=== PATIENT | male | born 1970 ===

== ENCOUNTER 2016-07-20 10:10 | Day surgery (SDC) | payer OTHER ==
[2016-07-13 09:21] VITALS: BMI 28.1
[2016-07-20] MEDS ORDERED: Clindamycin 300 mg/2 ml Inj ONE (14:03)
[2016-07-20] MEDS ORDERED: Midazolam 2 MG/2 ML VIAL ONE (14:14)
[2016-07-20] MEDS ORDERED: Propofol 10 mg/ml Inj (20 ML) ONE (14:14)
[2016-07-20] MEDS ORDERED: Lactated Ringer's 1,000 ML IV ONE (14:15)
[2016-07-20] MEDS ORDERED: Rocuronium 10 mg/ml (5 ml) ONE ×2 (14:17→15:01)
[2016-07-20] MEDS ORDERED: Neostigmine Methylsulfate 3mg/3ml Syringe IV ONE (15:49)
[2016-07-20] MEDS ORDERED: HYDROmorphone 0.5 mg/0.5 ml ISec IM STA (16:29)
[2016-07-20] MEDS ORDERED: HYDROmorphone 0.5 mg/0.5 ml ISec ONE (16:29)
--- NOTE | 2016-07-20 16:35 | PCM.SURG1 ---
Surgeon's Initial Post Op Note - Surgeon's Notes Surgeon: Giorgio Medel MD Sectional Belt Mold Assembler: Sanna Espinoza PA-C Type of Anesthesia: General Endo Anesthesia Administered By: Dr. Acuña Pre-Operative Diagnosis: Left distal biceps tendon tear Operative Findings: tourniquet: 49 min @ 250mmHg Post-Operative Diagnosis: same Operation Performed: Left distal biceps tendon primary repair Specimen/Specimens Removed: none Estimated Blood Loss: EBL {In ML}: 10 Blood Products Given: N/A Drains Used: No Drains Post-Op Condition: Fair Date of Surgery/Procedure: 07/20/16 Time of Surgery/Procedure: 16:34
[2016-07-20] MEDS: HYDROmorphone 1 mg/ml ISec IVP PRN ×2 (16:40→17:16)
[2016-07-20] MEDS ORDERED: Oxycodone/Acetaminophen 5/325 mg Tab PO PRN (17:01)
[2016-07-20 18:26] VITALS: BP 118/73; PULSE 83; RESP 18; TEMP 97; O2SAT 100
--- NOTE | 2016-07-20 20:28 | OP ---
PROCEDURE DATE: 07/20/2016 PREOPERATIVE DIAGNOSIS: Left elbow complete distal biceps tear. POSTOPERATIVE DIAGNOSIS: Left elbow complete distal biceps tear. PROCEDURE: Left elbow: 1. Primary repair of distal biceps tendon. 2. Placement in long-arm splint. SURGEON: Juan Medel MD PATIENT RESOURCE COORDINATOR: Mariam Espinoza PA-C JUSTIFICATION FOR PATIENT RESOURCE COORDINATOR: Mariam Espinoza is a certified physician assistant chief nursing officer and her skilled surgical services were an absolute necessity for successful completion of the procedure. She provided skilled surgical assistance with positioning of patient, positioning of extremity, retraction of neurovascular structures, preparation of proximal radius, preparation of distal biceps tendon , management of surgical field, docking of distal biceps tendon and placement of fixation hardware, wound closure, placement in long-arm splint. Mariam Espinoza was present for the entire case and was an absolute necessity for successful completion of the procedure. ANESTHESIA: General endotracheal anesthesia with a postoperative regional nerve block placed by anesthesia staff in PACU. ESTIMATED BLOOD LOSS: 10 mL. TOURNIQUET TIME: 49 minutes at 250 mmHg. COMPLICATIONS: None. SPECIMENS: None. DISPOSITION: The patient was extubated and transferred back in stable condition and tolerated procedure well. IMPLANTS: Arthrex tension slide distal biceps tendon repair kit with stainless steel button, FiberLoop suture, 7 mm BioComposite biceps tenodesis screw, all placed at the distal biceps tendon and proximal radius tuberosity. INDICATIONS FOR SURGERY: The patient is a 45-year-old male with no significant past medical history aside from a history of smoking who presented to the office at [facility] under my care for the first time on 06/30/2016 with left elbow pain and weakness since 06/23/2016. This is a Workman's Compensation case for [facility] Workers' Compensation with a date of injury of 06/23/2016. 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 He went to an Urgent Care in [facility] on the day of injury and was evaluated and diagnosed with an elbow sprain, possible biceps tendon tear and instructed to follow up with an orthopedic surgeon as an outpatient. He followed up in my office. On physical exam, indeed he had a positive hook sign with a positive iron sign and a nonpalpable biceps tendon, aka clinical findings of a distal biceps tendon tear. He was referred for an MRI of the left elbow, which was done at [facility] on 07/04/2016 which confirmed a distal biceps tendon tear with 1 cm retraction as well as common extensor tendinopathy and inflammation. I spent a very long time with the patient explaining to him his diagnosis and treatment options which included primary distal biceps tendon repair versus non- operative treatment. He understood that non-operative treatment may lead to weakness with supination and partial weakness with elbow flexion. With his occupation as a construction code administrator, he stated that this was not an option for him. He was very adamant about returning to the same occupation. He was indicated for left elbow primary distal biceps tendon repair. The risks, benefits, and alternatives of the procedure were discussed at length with the patient with the risks including but not limited to, neurovascular damage, infection, damage to posterior and interosseous nerve and palsy, failure of hardware, failure of repair, need for further surgery, chronic pain and disability, development of blood clots including DVT and PE, need for further surgery, anesthesia reactions including . After answering all of his questions, patient stated he understood the risks and wished to proceed with surgery. He watched the surgical animation videos and diagnosis animation videos and stated that he understood his diagnosis as well as the procedure to be done. He was referred to his primary care physician for medical clearance and the procedure was scheduled after his PATs were done and he was medically cleared. I spent a long time explaining the need for compliance with the post-op rehab protocol in order to maximize the chances of him having a successful outcome after surgery. PROCEDURE IN DETAIL: The patient was identified in the preoperative holding area and the left elbow was marked for surgery. Once again, as described above , the risks, benefits, alternatives of the procedure were discussed at length with the patient and informed consent was obtained. After brief discussion with anesthesia staff, perioperative IV antibiotics in the form of 900 mg clindamycin IV were administered as the patient has a PENICILLIN ALLERGY and the patient was then transported to the OR and placed on the well-padded operating room table with all bony prominences and superficial neurovascular structures well padded. A final timeout was done with the surgeon, anesthesia staff, and OR staff, all in agreement with the patient, procedure being done, and extremity being operated on. General anesthesia was administered without difficulty or complication. Left upper extremity was then prepped and draped in standard sterile fashion with a sterile tourniquet prepared. The limb was then exsanguinated and a sterile tourniquet was inflated for a total tourniquet time of 49 minutes at 250 mmHg. An incision was made 3 fingerbreadths distal to the crease of the cubital fossa/elbow crease with a slight radial slant to allow for easy access to the distal biceps tendon and the radial tuberosity. Incision was made through skin down to subcutaneous tissue down to level of the forearm fascia. The lateral antebrachial cutaneous nerve was also identified and protected throughout the course with blunt retraction. Brachioradialis muscle belly was identified and a plane was developed between the pronator teres and the brachioradialis. The distal biceps torn tendon was easily identified as it was indeed torn with a surrounding seroma. The seroma was decompressed and the fluid was evacuated. Distal biceps tendon had some scarred in fibrous tissue adherent to the surrounding soft tissue which were resected and the distal biceps tendon was then brought into the surgical wound carefully while maintaining protection to all neurovascular structures. The distal biceps tendon distal tip showed scarred in tissue that was of poor quality, which was resected back to healthy tendon tissue. With the use of the #2 FiberWire FiberLoop suture from Arthrex, a whipstitch was placed starting at 3 cm proximal to the distal tip and working distally until it exited the distal tip. With a sharp blade, the end of the tendon was bulleted for easier docking into the future recipient site at the radial tuberosity. Once the preparation of distal biceps tendon was complete, the distal biceps tendon was then placed back into the soft tissue antecubital fossa and attention was then turned towards exposing radial tuberosity. With blunt Hohmann's and retractors, the radial tuberosity was identified and exposed while maintaining careful gentle retraction to the brachioradialis and posterior interosseous nerve behind it and holding the arm in full supination. With the help of fluoroscopic imaging, the center of the radial tuberosity was palpated, seen and also confirmed on biplanar fluoroscopic imaging and a spade-tipped guidewire was then passed from the distal biceps tendon kit from Arthrex bicortically centered on the radial tuberosity. The distal biceps tendon while prepared measured 7 mm and an 8 mm cannulated drill was then passed over the guidewire unicortically, just drilling out the near cortex. At that point in time, the guidewire and the drill were removed and copious irrigation was used to remove all bony debris and prevent any future heterotopic ossification. The docking site was inspected and visualized and found to be well done with a perfect outer ring and inner ring at the far cortex. The suture from the distal biceps tendon was then passed in opposing directions through the tension slide button and with the handle, the tension slide button was passed through the far hole in the radial tuberosity and flipped directly under direct visualization on the far cortex with no interposed soft tissue, confirmed with a biplanar fluoroscopic imaging. The suture was then advanced alternating tension slide technique with the elbow held at flexion and supination and under direct visualization, the distal biceps tendon docked completely into the radial tuberosity docking site. A free needle was then used to place one end of the sutures through the distal biceps tendon to hold the position. The suture was then tied to each other and the distal biceps repair and docking site was maintained. At that point in time, backup fixation with an 8 mm BioComposite biceps tenodesis screw was then carried out. One end of the suture was passed through the screw from Arthrex and the screw was placed with good press-fit and fixation achieved. One end of the suture that was passed through the screw was then, with a free needle, tied through the distal biceps tendon again to secure the construct. The elbow was then taken through range of motion and was able to obtain near full extension while maintaining good tension on the biceps tendon with full supination and pronation obtained. Final fluoroscopic images were taken confirming good placement of the docking site and the tension button. The tourniquet was deflated for a total tourniquet time of 49 minutes and good hemostasis was achieved. All neurovascular structures were evaluated and found to be without injury. The posterior interosseous nerve was not visualized throughout the surgery and was protected with blunt retraction and supinated position of the arm. The wound was copiously irrigated and wound closure was started with 2.0 Vicryl suture for deep tissue and subcutaneous tissue followed by 3.0 Monocryl suture for skin. Sterile dressings were applied followed by a layer of sterile cast padding from the metacarpal heads all the way up to the proximal arm followed by placement in a posterior splint. A layer of compressive Parveen wrap was placed and a U splint was placed. Once the splint hardened, the patient was extubated and transferred to PACU in stable condition and tolerated the procedure well, in a sling. DISPOSITION: The patient will be discharged home once he has recovered from anesthesia. He has been given a prescription for Percocet for pain control. He will contact me directly with any questions or concerns. He is instructed to keep the splint and the dressings clean, dry, and intact until he follows up in the office at [facility] within 1 week and already has his postoperative appointment set up. He is to be strict non weight bearing to the Left upper extremity. Juan Medel MD cc: [id number] TT: 07/20/2016 20:27:42 M[place]ifton
== END 2016-07-20 18:45 | disposition home or self-care (01) ==
LOC: C.SDS 10:10
PROVIDERS: ATTEND Student in an Organized Health Care Education/Training Program
DX: S46.212A Strain of muscle, fascia and tendon of other parts of biceps, left arm, initial encounter (principal); X50.0XXA Overexertion from strenuous movement or load, initial encounter; Z88.0 Allergy status to penicillin
CPT/HCPCS: 24341; J1170; J2250; J2704; J2710; J3010; J7120

== ENCOUNTER 2016-10-12 18:11 | Emergency (ER) | payer OTHER ==
[2016-10-12 18:11] VITALS: BMI 28.1
[2016-10-12] MEDS ORDERED: Oxycodone/Acetaminophen 5/325 mg Tab PO STA (19:41)
--- NOTE | 2016-10-12 19:41 | C.PDOC ---
History Of Present Illness 45 yo female w/PMHx of sciatica, come in for evaluation of painful mass over rectal area noted few days ago. Pt reports, developed severe pain 1.5 days ago. Admits, (+) hx of constipation. Pt also reports, " pain in my rectum trigger my sciatica pain". Otherwise, pt denies fever, chills, abd. pain, N/V/D, denies change in BM, melena, hematoschezia, denies UTI sx, saddle anesthesia, urinary or fecal incontinence, denies weakness, sensory or vascular deficits to B/L LEs. Ambulate to ED for evaluation, not in any apparent distress. Time Seen by Provider: 10/12/16 19:22 Chief Complaint (Nursing): Abnormal Skin Integrity History Per: Patient Onset/Duration Of Symptoms: Gradual Current Symptoms Are (Timing): Still Present Past Medical History Reviewed: Historical Data, Nursing Documentation, Vital Signs Vital Signs: Last Vital Signs Temp 98.1 F 10/12/16 18:20 Pulse 77 10/12/16 18:20 Resp 18 10/12/16 18:20 BP 135/80 10/12/16 18:20 Pulse Ox 98 10/12/16 19:46 - Medical History PMH: Back Problems Denies: Chronic Kidney Disease Other Surgeries: "Back surgery" Family History: States: Unknown Family Hx - Social History Hx Alcohol Use: No Hx Substance Use: No - Immunization History Hx Tetanus Toxoid Vaccination: No Hx Influenza Vaccination: No Hx Pneumococcal Vaccination: No Review Of Systems Except As Marked, All Systems Reviewed And Found Negative. Constitutional: Negative for: Fever, Chills ENT: Negative for: Throat Pain Gastrointestinal: Positive for: Rectal Pain. Negative for: Nausea, Vomiting, Abdominal Pain, Diarrhea, Melena, Hematochezia, Hematemesis Genitourinary: Negative for: Dysuria, Frequency, Incontinence, Rash Musculoskeletal: Positive for: Back Pain. Negative for: Neck Pain Skin: Negative for: Rash Neurological: Negative for: Weakness, Numbness Physical Exam - Physical Exam Appears: Well, No Acute Distress Skin: Normal Color, Warm, Dry Eye(s): bilateral: PERRL Nose: Normal Throat: Normal Neck: Supple Gastrointestinal/Abdominal: Soft, No Tenderness, No Distention, No Guarding Rectal: Rectal Tone (good), Hemorrhoids (external, non-thrombosed) Back: No CVA Tenderness, No Vertebral Tenderness, Paraspinal Tenderness ( diffuse lumbar paraspinal tenderness, no midoline tenderness.) Extremity: No Pedal Edema Neurological/Psych: Oriented x3, Normal Speech, Normal Motor, Normal Sensation, Normal Reflexes ED Course And Treatment O2 Sat by Pulse Oximetry: 98 Progress Note: On re-evaluation, pt is afebrile, hemodynamicaly stable. Non- toxic. PulseOx 98% RA. Abd: bengn. rectal exam c/w clinical finidngs of external hemorrhoids 1cm diameter, sligtly tender, non-thrombosed. Good rectal tone. Neurologicaly intact. Pt advised on course of ds. ref. to f/u with PMD and Surgery on 2-3 days for re-eval. return if any new changes. Disposition Counseled Patient/Family Regarding: Diagnosis, Need For Followup, Rx Given - Disposition Referrals: Sebastian Suarez MD [Staff Provider] - Disposition: HOME/ ROUTINE Disposition Time: 19:38 Condition: STABLE Additional Instructions: Fiber-full diet Laxative, avoid straining, constipation, heavy lifting, etc Encourage fluids Warm water sitz bath daily Follow up with PMD and Surgery in 2-3 days for re-evaluation , pain control and further treatment as need Return to Ed if any worsening or new changes. Prescriptions: Bisacodyl [Ducolax] 5 mg PO DAILY #14 ect Hydrocortisone 2.5% (Rectal) [Anusol-HC] 30 applic [place] BID #1 tube traMADol [Ultram] 50 mg PO TID #7 tab Instructions: Hemorrhoids (ED), Back Pain (ED) - Clinical Impression Clinical Impression: External hemorrhoid, Back pain
[2016-10-12] MEDS ORDERED: Oxycodone/Acetaminophen 5/325 mg Tab ONE (19:52)
[2016-10-12 20:32] VITALS: BP 130/80; PULSE 80; RESP 14; TEMP 98; O2SAT 99
== END 2016-10-12 20:32 | disposition home or self-care (01) ==
LOC: C.ER 18:11
DX: K64.4 Residual hemorrhoidal skin tags (principal); M54.5 Low back pain